=== PATIENT | male | born 1985 | race Caucasian/White ===

== ENCOUNTER 2020-10-31 13:37 | Emergency (ER) | payer OTHER ==
[~2020-10-31] VITALS: Ht 177.8 cm; Wt 72.6 kg
[~2020-10-31 13:37] MED LIST: Bactrim Ds Tab1 EACH PO; CEPH500 PO; NAPR500 PO; SULTRIDS PO
[2020-10-31] MEDS ORDERED: Pepcid20 MG PO (13:54)
[2020-10-31] MEDS ORDERED: BENADRYL25 MG PO (13:54)
[2020-10-31] MEDS ORDERED: METPRE4DP PO (13:54)
== END 2020-10-31 15:19 | disposition home or self-care (01) ==
LOC: ER 13:37
DX: L23.7 Allergic contact dermatitis due to plants, except food (principal); F17.200 Nicotine dependence, unspecified, uncomplicated; Z79.899 Other long term (current) drug therapy
CPT/HCPCS: 96372; 99282-25; A9270; J1100

== ENCOUNTER 2020-12-04 09:25 | Emergency (ER) | payer OTHER ==
[~2020-12-04] VITALS: Ht 177.8 cm; Wt 77.1 kg
[~2020-12-04 09:25] MED LIST changes: +BENADRYL25 MG PO; +METPRE4DP PO; +Pepcid20 MG PO
[2020-12-04] MEDS ORDERED: BENADRYL25 MG PO (10:21)
[2020-12-04] MEDS ORDERED: METPRE4DP PO (10:21)
== END 2020-12-04 10:37 | disposition home or self-care (01) ==
LOC: ER 09:25
DX: L23.7 Allergic contact dermatitis due to plants, except food (principal); F17.210 Nicotine dependence, cigarettes, uncomplicated; F17.200 Nicotine dependence, unspecified, uncomplicated
CPT/HCPCS: 99282